=== PATIENT | female | born 1975 | race Caucasian/White ===

== ENCOUNTER 2018-07-24 14:52 | Emergency (ER) | payer OTHER ==
[~2018-07-24] VITALS: Ht 170.2 cm; Wt 70.3 kg
[2018-07-24] MEDS ORDERED: MOBIC15 MG PO (15:00)
[2018-07-24] MEDS ORDERED: PROZAC20 MG PO (15:00)
[2018-07-24] MEDS ORDERED: KLONOPIN1 MG PO (15:01)
[2018-07-24 15:31] LABS: HEMATOCRIT 39.4 % (37.0-47.0); HEMOGLOBIN 13.4 gm/dL (12.0-15.0); MCH 31.5 pg (26.0-34.0); MCHC 34.1 g/dL (28.0-37.0); MCV 92.2 fL (80.0-100.0); MPV 7.7 fl. (7.2-11.1); NUCLEATED RBCS 0 /100WBC; PLATELET COUNT* 214 thou/uL (150-400); RBC 4.27 mil/uL (4.20-5.00); RDW-CV 13.7 % (10.5-14.5); WBC 7.1 thou/uL (4.0-11.0)
[2018-07-24] MEDS ORDERED: TRAMADOL 50 MG50 MG PO (15:45)
[2018-07-24 15:49] LABS: ANION GAP 10 mmol/L (7-16); BUN 19 mg/dL (7-18); CHLORIDE 105 mmol/L (98-107); CO2 24 mmol/L (21-32); CREATININE 0.7 mg/dL (0.6-1.3); GLUCOSE 90 mg/dL (70-99); POTASSIUM 3.4 mmol/L (3.5-5.1); SODIUM 139 mmol/L (136-145); TROPONIN-I LEVEL <0.06 ng/mL (<0.06)
[2018-07-24 15:50] LABS: ALBUMIN 3.4 g/dL (3.4-5.0); ALKALINE PHOSPHATASE 72 U/L (46-116); LIPASE 91 U/L (73-393); NT-PRO BRAIN NAT PEPTIDE 129 pg/mL (<300); SGOT 36 U/L (15-37); SGPT 32 U/L (30-65); TOTAL BILIRUBIN 0.5 mg/dL (<0.1-1.0); TOTAL PROTEIN 6.3 g/dL (6.4-8.2)
[2018-07-24 15:53] LABS: PROTIME 9.9 Seconds (9.20-11.50)
[2018-07-24 16:35] LABS: ABSOLUTE LYMPHOCYTES 0.2 thou/uL (0.8-5.3); ABSOLUTE MONOCYTES 0.3 thou/uL (0.0-1.2); ABSOLUTE NEUTROPHILS 6.6 thou/uL (1.6-8.1); PLATELET ESTIMATE ADEQUATE
[2018-07-24 18:01] VITALS: BP 110/76
--- NOTE | 2018-07-25 16:59 | EKG ---
[place] [address] ELECTROCARDIOGRAM REPORT Name: SANTO VALERIO Room: [facility]#: [id number] Admission: 07/24/18 Attend Phys: Discharge: 07/24/18 Date of : 75 Report #: [id number] THIS REPORT FOR: //name// [facility] ED Test Date: 2018-07-24 Test Time: 14:59:58 Pat Name: SANTO VALERIO Department: Room: Gender: F Windows Application Administrator: JENNY : 1975 Requested By: Carlos A Peraza Order Number: [id number] MD: Carter Ovalle Measurements Intervals [place] Rate: 100 P: 53 DE: 136 QRS: 41 QRSD: 105 T: 45 QT: 367 QTc: 474 Interpretive Statements Sinus tachycardia No previous ECG available for comparison Electronically Signed On 07-25-2018 16:59:00 CDT by Carter Ovalle [email or web address] <ELECTRONICALLY SIGNED> By: Carter Ovalle MD, [facility] 07/25/18 1659 1459 1459 Carter Ovalle MD, FACC /EPI
== END 2018-07-24 18:02 | disposition home or self-care (01) ==
LOC: M.ERS 14:52
PROVIDERS: Emergency Medicine
DX: R07.89 Other chest pain (principal); R10.13 Epigastric pain; Z90.710 Acquired absence of both cervix and uterus; Z88.6 Allergy status to analgesic agent; Z88.5 Allergy status to narcotic agent; Z88.0 Allergy status to penicillin